=== PATIENT | female | born 1970 | race Asian ===

== ENCOUNTER 2024-05-23 07:04 | Day surgery (SDC) | payer MEDICAID ==
[~2024-05-23] VITALS: Ht 157.5 cm; Wt 72.6 kg
[2024-05-23] MEDS ORDERED: SIMETHICONE 40 MG/0.6 ML ML ONE (07:19)
[2024-05-23] MEDS ORDERED: fentaNYL CITRATE/PF 100 MCG/2 ML AMP ONE (07:19)
[2024-05-23] MEDS ORDERED: MIDAZOLAM HCL 5 MG/5 ML VIAL ONE ×2 (07:19→08:29)
[2024-05-23 14:09] VITALS: BP_SYST 129; PULSE 72; RESP 18; TEMP 97.5; O2SAT 99
== END 2024-05-23 09:00 | disposition home or self-care (01) ==
LOC: SDS 07:04 → SMU 07:05 → SDS 09:00
PROVIDERS: ATTEND Internal Medicine
DX: Z12.11 Encounter for screening for malignant neoplasm of colon (principal); D12.5 Benign neoplasm of sigmoid colon; K64.8 Other hemorrhoids; I10 Essential (primary) hypertension; E78.5 Hyperlipidemia, unspecified; G43.909 Migraine, unspecified, not intractable, without status migrainosus; F17.210 Nicotine dependence, cigarettes, uncomplicated; Z90.89 Acquired absence of other organs; Z79.899 Other long term (current) drug therapy
CPT/HCPCS: 45380; 99152; 88305; G0378; J2250; J3010